=== PATIENT | female | born 1965 | race Caucasian/White ===

== ENCOUNTER 2025-02-02 00:15 | Inpatient (IN) | payer MEDICAID ==
[~2025-02-02] VITALS: Ht 170.2 cm; Wt 95.3 kg
[2025-02-02] MEDS ORDERED: ONDANSETRON ODT 4 MG TAB.RAPDIS ONE (00:54)
[2025-02-02] MEDS ORDERED: MORPHINE SULFATE 4 MG/1 ML DISP.SYRIN ONE ×2 (00:54→01:30)
[2025-02-02] MEDS: MORPHINE SULFATE 10 MG/1 ML DISP.SYRIN IM ONE (00:56)
[2025-02-02] MEDS: ONDANSETRON ODT 4 MG TAB.RAPDIS SL ONE (00:56)
[2025-02-02 01:09] LABS: BASOPHILS % (AUTO) 0.3 % (0.0-2.0); EOSINOPHILS # (AUTO) 0.2 K/uL (0.0-0.7); EOSINOPHILS % (AUTO) 1.2 % (0.0-7.0); HEMATOCRIT 37.8 % (31.2-41.9); HEMOGLOBIN 12.8 g/dL (10.9-14.3); LYMPHOCYTES # (AUTO) 1.1 K/uL (0.8-4.8); LYMPHOCYTES % (AUTO) 8.1 % (20.5-51.5); MEAN CORPUSCULAR HEMOGLOBIN 29.8 uug (24.7-32.8); MEAN CORPUSCULAR HGB CONC 34 g/dL (32.3-35.6); MEAN CORPUSCULAR VOLUME 88.6 fL (75.5-95.3); MONOCYTES # (AUTO) 1.1 K/uL (0.1-1.30); MONOCYTES % (AUTO) 8.1 % (0.0-11.0); NEUTROPHILS # (AUTO) 11.3 K/uL (1.8-8.9); NEUTROPHILS % (AUTO) 82.3 % (38.5-71.5); PLATELET COUNT (AUTO) 353 K/uL (179-408); RED BLOOD CELL COUNT(AUTO) 4.27 MIL/uL (3.63-4.92); RED CELL DISTRIBUTION WIDTH 13.7 % (12.3-17.7); WHITE BLOOD COUNT (AUTO) 13.7 K/uL (3.8-11.8)
[2025-02-02 01:12] LABS: DIFFERENTIAL COMMENT 1
[2025-02-02 01:14] LABS: CALCIUM 9.1 mg/dL (8.5-10.1); CREATININE 0.9 mg/dL (0.6-1.3); POTASSIUM 3.9 mmol/L (3.5-5.1)
[2025-02-02 01:20] LABS: ALBUMIN 4.3 g/dL (3.4-5.0); BILIRUBIN,DIRECT 0.1 mg/dL (0.0-0.2); BILIRUBIN,TOTAL 0.3 mg/dL (0.2-1.0); TOTAL PROTEIN, SERUM 7.3 g/dL (6.4-8.2)
[2025-02-02] MEDS ORDERED: KETOROLAC TROMETHAMINE 15 MG INJ ONE (01:30)
[2025-02-02] MEDS: MORPHINE SULFATE 4 MG/1 ML DISP.SYRIN IV ONE (01:36)
[2025-02-02] MEDS: KETOROLAC TROMETHAMINE 15 MG INJ IVP ONE (01:36)
[2025-02-02] MEDS ORDERED: QUET100T PO (02:39)
[2025-02-02] MEDS ORDERED: GABA600T12 PO (02:39)
[2025-02-02] MEDS ORDERED: ALPR2TAB7 PO (02:39)
[2025-02-02] MEDS ORDERED: BUSP30TA2 PO (02:39)
[2025-02-02] MEDS ORDERED: MINO50TA PO (02:39)
[2025-02-02] MEDS ORDERED: CELE200C PO (02:39)
[2025-02-02] MEDS ORDERED: PARO30TA74 PO (02:39)
[2025-02-02] MEDS ORDERED: ACETAMINOPHEN 325 MG TABLET PO PRN (03:15)
[2025-02-02] MEDS ORDERED: IBUPROFEN 600 MG TABLET PO PRN (03:15)
[2025-02-02] MEDS: ENOXAPARIN SODIUM 40 MG/0.4 ML DISP.SYRIN SQ SCH ×2 (03:15→09:16)
[2025-02-02] MEDS ORDERED: CELECOXIB 200 MG CAPSULE PO PRN (03:15)
[2025-02-02] MEDS ORDERED: MAGNESIUM HYDROXIDE 30 ML LIQUID UDC PO PRN (03:15)
[2025-02-02] MEDS ORDERED: ENOXAPARIN SODIUM 40 MG/0.4 ML DISP.SYRIN SQ ONE (05:38)
[2025-02-02] MEDS ORDERED: ALPRAZOLAM 0.5 MG TABLET PO PRN (06:30)
[2025-02-02 06:32] LABS: BASOPHILS % (AUTO) 0.3 % (0.0-2.0); EOSINOPHILS # (AUTO) 0.2 K/uL (0.0-0.7); EOSINOPHILS % (AUTO) 1.8 % (0.0-7.0); HEMATOCRIT 35.3 % (31.2-41.9); HEMOGLOBIN 11.7 g/dL (10.9-14.3); LYMPHOCYTES # (AUTO) 1.7 K/uL (0.8-4.8); LYMPHOCYTES % (AUTO) 16.1 % (20.5-51.5); MEAN CORPUSCULAR HEMOGLOBIN 29.7 uug (24.7-32.8); MEAN CORPUSCULAR HGB CONC 33 g/dL (32.3-35.6); MEAN CORPUSCULAR VOLUME 89.5 fL (75.5-95.3); MONOCYTES # (AUTO) 0.8 K/uL (0.1-1.30); MONOCYTES % (AUTO) 7.2 % (0.0-11.0); NEUTROPHILS # (AUTO) 8.1 K/uL (1.8-8.9); NEUTROPHILS % (AUTO) 74.6 % (38.5-71.5); PLATELET COUNT (AUTO) 317 K/uL (179-408); RED BLOOD CELL COUNT(AUTO) 3.94 MIL/uL (3.63-4.92); RED CELL DISTRIBUTION WIDTH 13.6 % (12.3-17.7); WHITE BLOOD COUNT (AUTO) 10.8 K/uL (3.8-11.8)
[2025-02-02] MEDS: PANTOPRAZOLE SODIUM 40 MG TABLET.DR PO SCH (06:35)
[2025-02-02] MEDS: MORPHINE SULFATE 2 MG/1 ML DISP.SYRIN IV PRN (06:35)
[2025-02-02] MEDS: ONDANSETRON 4 MG/2 ML VIAL IV PRN (06:36)
[2025-02-02 06:37] VITALS: BP 106/57; TEMP 98; O2SAT 92
[2025-02-02 06:45] LABS: CALCIUM 8.6 mg/dL (8.5-10.1); CREATININE 1.2 mg/dL (0.6-1.3); MAGNESIUM 2.3 mg/dL (1.8-2.4); PHOSPHOROUS 4.4 mg/dL (2.5-4.9); POTASSIUM 4.3 mmol/L (3.5-5.1)
[2025-02-02 07:22] LABS: DIFFERENTIAL COMMENT 1
[2025-02-02] MEDS ORDERED: Medication Not On Formulary EA (Paroxetine Hcl 60 MG) PO SCH (09:00)
[2025-02-02] MEDS ORDERED: MINOCYCLINE HCL 50 MG PO SCH (09:00)
[2025-02-02] MEDS: PAROXETINE HCL 20 MG TABLET PO SCH (09:14)
[2025-02-02] MEDS: GABAPENTIN 400 MG CAPSULE PO SCH (09:14)
[2025-02-02] MEDS: busPIRone 10 MG TABLET PO SCH (09:14)
[2025-02-02 11:31] VITALS: BP 144/82; TEMP 98.5; O2SAT 97
[2025-02-02] MEDS: MINOCYCLINE 50 MG PO SCH (11:34)
[2025-02-02] MEDS: HYDROCODONE/APAP 5-325MG TABLET PO PRN (11:36)
[2025-02-02] MEDS ORDERED: HYDROCODONE/APAP 5-325MG TABLET PO PRN (14:30)
[2025-02-02] MEDS: MIRALAX 17 GM POWD.PACK PO SCH (14:53)
[2025-02-02 15:10] VITALS: BP_SYST 105; BP_SYST 118; BP_SYST 121; BP_DIAS 69; BP_DIAS 73; TEMP 98.1; O2SAT 95
[2025-02-02] MEDS ORDERED: METH-806 PO (15:10)
[2025-02-02] MEDS ORDERED: HYDR-3972 PO (15:10)
[2025-02-02] MEDS ORDERED: DICL100G26 TP (15:10)
[2025-02-02] MEDS: IV NORMAL SALINE 500 ML IV ONE (15:25)
[2025-02-02] MEDS: METHOCARBAMOL 500 MG TABLET PO PRN (15:31)
[2025-02-02 15:40] VITALS: BP 105/69; TEMP 98; O2SAT 94
[2025-02-02] MEDS ORDERED: QUETIAPINE FUMARATE 100 MG TABLET PO SCH (21:00)
== END 2025-02-02 17:30 | disposition home or self-care (01) | DRG 384 ==
LOC: ER 00:15 → MEDSURG3 02:41
PROVIDERS: ATTEND Nurse Practitioner Family
PROC: 2W3PX1Z Immobilization of Left Upper Leg using Splint (ICD-10-PCS; principal; 2025-02-02)
PROC: 2W3NX1Z Immobilization of Right Upper Leg using Splint (ICD-10-PCS; principal; 2025-02-02)
DX: S80.01XA Contusion of right knee, initial encounter (principal); E87.1 Hypo-osmolality and hyponatremia; D72.829 Elevated white blood cell count, unspecified; S16.1XXA Strain of muscle, fascia and tendon at neck level, initial encounter; F41.9 Anxiety disorder, unspecified; F32.A Depression, unspecified; S80.02XA Contusion of left knee, initial encounter; S70.02XA Contusion of left hip, initial encounter; S70.01XA Contusion of right hip, initial encounter; S83.91XA Sprain of unspecified site of right knee, initial encounter; S83.92XA Sprain of unspecified site of left knee, initial encounter; S40.012A Contusion of left shoulder, initial encounter; R26.2 Difficulty in walking, not elsewhere classified; S39.012A Strain of muscle, fascia and tendon of lower back, initial encounter; S29.012A Strain of muscle and tendon of back wall of thorax, initial encounter; M25.552 Pain in left hip; M25.551 Pain in right hip; W01.0XXA Fall on same level from slipping, tripping and stumbling without subsequent striking against object, initial encounter; Y93.K1 Activity, walking an animal; Y92.89 Other specified places as the place of occurrence of the external cause; Z87.891 Personal history of nicotine dependence; M85.80 Other specified disorders of bone density and structure, unspecified site; S50.312A Abrasion of left elbow, initial encounter
CPT/HCPCS: 36415; 71045; 72072; 72100; 72170; 73030; 73090; 73130; 73502; 83735; 84100; 85025; G0378; J1650; J1885; J2270; J2405; J7040; Q0162